=== PATIENT | female | born 1990 ===

== ENCOUNTER 2021-01-13 13:54 | Emergency (ER) | payer OTHER ==
[~2021-01-13] VITALS: Ht 160 cm; Wt 122.5 kg
[2021-01-13] MEDS ORDERED: LANTUS SOL100 UNIT/1 SQ (14:00)
[2021-01-13] MEDS ORDERED: HUMALOG100 UNIT/2 SQ (14:00)
[2021-01-13] MEDS ORDERED: INDERAL XL120 MG PO (14:00)
[2021-01-13] MEDS ORDERED: NEURONTIN300 MG PO (14:01)
== END 2021-01-13 19:38 ==
LOC: ER 13:54
DX: F41.8 Other specified anxiety disorders (principal); I10 Essential (primary) hypertension; E11.9 Type 2 diabetes mellitus without complications; Z20.822 Contact with and (suspected) exposure to COVID-19